=== PATIENT | male | born 1990 | race African-American/Black ===

== ENCOUNTER 2019-01-08 15:06 | Emergency (ER) | payer MEDICAID ==
[~2019-01-08] VITALS: Ht 162.6 cm; Wt 59.1 kg
[~2019-01-08 15:06] MED LIST: RISP3TAB44 PO
[2019-01-08] MEDS ORDERED: NEOMYCIN/POLYMYXIN B/HYDROCORT 10 ML OTIC SOLUTION AU ONE (16:30)
[2019-01-08] MEDS ORDERED: NEOMYCIN/POLYMYXIN B/HYDROCORT 10 ML OTIC SUSPENSION AU ONE (16:30)
[2019-01-08 17:00] VITALS: BP 118/70
== END 2019-01-08 17:00 | disposition home or self-care (01) ==
LOC: EMS 15:08
DX: H93.93 Unspecified disorder of ear, bilateral (principal); J34.89 Other specified disorders of nose and nasal sinuses; F20.9 Schizophrenia, unspecified